=== PATIENT | female | born 1975 | race Caucasian/White ===

== ENCOUNTER 2018-09-16 06:07 | Emergency (ER) | payer MEDICAID ==
[~2018-09-16] VITALS: Ht 149.9 cm; Wt 67.9 kg
[2018-09-16 06:11] VITALS: BP 152/96; PULSE 72; RESP 19; Ht 149.9 cm; Wt 67.9 kg
--- NOTE | 2018-09-16 06:33 | ERD ---
ER Documentation Chief Complaint Chief Complaint C/O MANZO X2 DAYS. HX OF MIGRAINES HPI 43-year-old female, with history of migraines, presents to the emergency department, complaining of migraine headache for 2 days. The pain is constant, 7/10. The patient denies blurred vision, no fever, no chills, no nausea or vom iting. Denies distal weakness, numbness or tingling. ROS All systems reviewed and are negative except as per history of present illness. Medications Home Meds Active Scripts Buoomegprg-Kzrekmllnutrx-Rsatnkok* (Fioricet*) 50-300-40 Mg Capsule, 1 CAP PO TID PRN for HEADACHE, #15 CAP Prov:HUYEN CARTWRIGHT MD 09/16/18 Allergies Allergies: Coded Allergies: No Known Allergy (Unverified , 09/16/18) FmHx Family History: No diabetes, No coronary disease Physical Exam Vitals Vital Signs Date Temp Pulse Resp B/P (MAP) Pulse Ox O2 O2 Flow FiO2 Time Delivery Rate 09/16/18 97.8 72 19 152/96 97 06:11 (114) Physical Exam Const: No acute distress Head: Atraumatic Eyes: Normal Conjunctiva ENT: Normal External Ears, Nose and Mouth. Neck: Full range of motion. No meningismus. Resp: Clear to auscultation bilaterally Cardio: Regular rate and rhythm, no murmurs Abd: Soft, non tender, non distended. Normal bowel sounds Skin: No petechiae or rashes Back: No midline or flank tenderness Ext: No cyanosis, or edema Neur: Awake and alert Psych: Normal Mood and Affect Results 24 hrs Laboratory Tests Test 09/16/18 07:18 09/16/18 07:20 Bedside Urine pH (LAB) 7.0 Bedside Urine Protein (LAB) 1+ Bedside Urine Glucose (UA) Negative Bedside Urine Ketones (LAB) Negative Bedside Urine Blood 1+ Bedside Urine Nitrite (LAB) Negative Bedside Urine Leukocyte Esterase (L Negative POC Beta HCG, Qualitative NEGATIVE Current Medications Medications Dose Sig/Jaxon Start Time Status Last (Trade) Ordered Route PRN Stop Time Admin Dose Reason Admin Ketorolac 30 mg ONCE STAT 09/16/18 DC 09/16/18 Tromethamine IM 06:52 07:23 (Toradol) 09/16/18 06:57 1 tab ONCE ONCE 09/16/18 DC 09/16/18 Acetaminophen PO 07:00 07:12 / 09/16/18 07:01 Hydrocodone Bitart ([place] (5/325)) Ondansetron 4 mg ONCE STAT 09/16/18 DC 09/16/18 HCl (Zofran ODT 06:52 07:11 Odt) 09/16/18 06:57 Procedures/MDM Vital signs stable, Physical exam unremarkable, neurovascular exam intact. Differential diagnosis include but not limited to: Classical migraine, sinusitis, visual corrective problems, side effects of medications, dehydration, electrolyte imbalance, endocrine/autoimmune medical condition, stress, anxiety, tension headache. Low suspicion for meningitis, CUSTOMIZER tumor, cerebrovascular event. Physical examination and clinical presentation consistent most likely with migraine headache. During the ED course the patient remained stable, no new complaints. The patient received treatment with Toradol IM presenting overall improvement of the symptoms. Results and clinical impression discussed with patient who agrees with management. The patient is stable to be treated outpatient and will be discharged home, some side effects of prescribed medications (headache, rash, nausea, vomiting, diarrhea, drowsiness, habituation, bleeding, hypertension, interactions with other medications) were reviewed. Follow up with the primary care provider in the next 48h has been recommended. If symptoms persist, worsen or new symptoms develop, then patient should return to the ED immediately. Instructions explained and given directly by me to the patient with acknowledgment and demonstrated understanding. Disclaimer: Inadvertent spelling and grammatical errors are likely due to EHR/dictation software use and do not reflect on the overall quality of patient care. Also, please note that the electronic time recorded on this note does not necessarily reflect the actual time of the patient encounter. Departure Diagnosis: Primary Impression: Migraine headache Condition: Stable Additional Instructions: Muchas jose raul por [facility] para cruz servicio. Esperamos que en cruz visita a la kaylyn de emergencia cruz problema medico haya sido solucionado y que se sienta mucho mejor. Para estar seguros que cruz mejoria sigue en proceso, le pedimos el favor de hacer blake sana de seguimiento medico con cruz doctor primario en los proximos 2-4 nazario. Lleve con usted estos documentos y las medicinas recetadas. Si augusto sintomas empeoran, NO SE ESPERE, por favor regrese a kaylyn de emergencia INMEDIATAMENTE. En constantino que usted no tenga un mdico de atencin primaria: Llame al mdico o clnica comunitaria de referencia que aparece abajo sabine las horas de consultorio para hacer blake sana para que le vean. CLINICAS: [facility] [phone] [id number] [facility] [phone] [facility] [phone] [address] [facility]. [facility] [phone] [address] [facility]. [facility] [phone] [facility] [phone] HUYEN AGUILAR MD Sep 16, 2018 06:33
[2018-09-16] MEDS ORDERED: KETOROLAC 60 MG INJ IM STA (06:52)
[2018-09-16] MEDS ORDERED: ONDANSETRON (ODT) 4 MG TAB ODT STA (06:52)
[2018-09-16] MEDS ORDERED: HYDROCODONE/APAP (5/325) TAB PO ONE (07:00)
[2018-09-16] MEDS ORDERED: BUTA1CAP38 PO (07:51)
== END 2018-09-16 07:58 | disposition home or self-care (01) ==
LOC: FTE 06:07
DX: G43.909 Migraine, unspecified, not intractable, without status migrainosus (principal)
CPT/HCPCS: 81003; 81025; 96372; J1885; Z7502; Z7610